=== PATIENT | male | born 1950 | race Caucasian/White ===

== ENCOUNTER 2021-12-16 09:56 | Inpatient (IN) ==
[2021-12-16] MEDS ORDERED: 0.9 % Sodium Chloride 1,000 ML IVC ONE (10:03)
[2021-12-16] MEDS ORDERED: Piperacillin/Tazobactam 3.375 GM in 0.9 % Sodium Chloride Mini Bag 100 ML IVPB ONE (10:04)
[2021-12-16] MEDS ORDERED: Vancomycin 1,250 MG/262.5 ML IV.SOLN IVPB STA (10:09)
[2021-12-16 10:35] LABS: Hematocrit 37.9 % (37.5-50.1); Hemoglobin 12.2 g/dL (12.9-16.9); Mean Corpuscular HGB Conc 32.2 g/dL (31.6-35.5); Mean Corpuscular Hemoglobin 29.9 pg (28.0-33.3); Mean Corpuscular Volume 92.9 fL (83.0-100.0); Mean Platelet Volume 10.8 fL (9.4-12.4); Monocytes # 0.6 K/mcL (0.0-1.3); Platelet Count 178 K/mcL (140-400); Red Blood Count 4.08 M/mcL (4.19-5.50); Red Cell Distribution Width 14.4 % (11.5-14.5); White Blood Count 16.1 K/mcL (4.3-11.1)
[2021-12-16] MEDS ORDERED: 0.9 % Sodium Chloride 500 ML IVC ONE ×2 (10:59→18:09)
[2021-12-16 11:01] LABS: Lymphocytes # 0.6 K/mcL (0.6-4.6); Neutrophils # 14.8 K/mcL (1.6-8.9)
[2021-12-16 11:02] LABS: Toxic Granulation Present (Not Present)
[2021-12-16 11:09] LABS: Albumin 3.5 g/dL (3.5-5.7); Albumin/Globulin Ratio 1.2 (1.1-2.2); Bilirubin,Direct 0.3 mg/dL (0.0-0.2); Bilirubin,Indirect 0.6 mg/dL (0.0-1.0); Bilirubin,Total 0.9 mg/dL (0.3-1.0); Calcium 8.4 mg/dL (8.6-10.3); Potassium 3.1 mEq/L (3.5-5.1); Total Protein 6.5 g/dL (6.4-8.9); Troponin I 0.08 ng/mL (< 0.04)
[2021-12-16 12:06] LABS: Amorphous Sediment,Urine Few per hpf (None-Few); Bilirubin,Urine Negative (Negative); Blood,Urine Moderate (Negative); Clarity,Urine Ex.Turbid (Clear); Color,Urine Yellow (Yellow); Glucose,Urine (UA) Normal (Normal); Hyaline Casts,Urine Few per lpf (None Seen); Ketones,Urine Trace mg/dL (Negative); Leukocyte Esterase,Urine Negative (Negative); Mucus,Urine Few per lpf (None-Few); Nitrite,Urine Negative (Negative); PH,Urine 5.5 pH Units (5.0-8.0); Protein,Urine 200 mg/dL (Neg-Trace); Squamous Epithelial Cell,Urine Few per hpf (None-Few)
[2021-12-16] MEDS ORDERED: Naloxone 0.4 MG/ML INJ IVP PRN (12:32)
[2021-12-16] MEDS ORDERED: Ondansetron 4 MG/2 ML VIAL IVP PRN (12:32)
[2021-12-16] MEDS ORDERED: Acetaminophen 325 MG TABLET PO PRN (12:32)
[2021-12-16 12:42] LABS: INR 1.6; Prothrombin Time 17.9 Seconds (9.4-12.1)
[2021-12-16] MEDS ORDERED: *HR* Propofol 200 MG/20 ML VIAL IVP ONE (14:08)
[2021-12-16] MEDS ORDERED: Lidocaine -MPF 2% 2 ML VIAL ONE (14:09)
[2021-12-16] MEDS ORDERED: *HR* Succinylcholine 200 MG/10 ML VIAL IVP ONE (14:09)
[2021-12-16] MEDS ORDERED: Indomethacin 50 MG SUPP.RECT RC ONE (14:11)
[2021-12-16] MEDS ORDERED: Lidocaine -MPF 4% 5 ML AMPUL ONE (14:12)
[2021-12-16] MEDS ORDERED: *HR* Phenylephrine 10 MG/ML VIAL ONE (14:40)
[2021-12-16] MEDS ORDERED: *HR* HYDROMORPHONE 2 MG/ML VIAL ONE (15:03)
[2021-12-16] MEDS ORDERED: EPHEDrine 50 MG/ML VIAL ONE (15:26)
[2021-12-16] MEDS: 0.9 % Sodium Chloride 1,000 ML IVC SCH (17:46)
[2021-12-16] MEDS ORDERED: Piperacillin/Tazobactam 3.375 GM in 0.9 % Sodium Chloride Mini Bag 100 ML IVPB SCH (18:00)
[2021-12-16 18:25] LABS: Calcium 7.3 mg/dL (8.6-10.3); Potassium 4.3 mEq/L (3.5-5.1)
[2021-12-16] MEDS: Piperacillin/Tazobactam 3.375 GM in 0.9 % Sodium Chloride Mini Bag 100 ML IVPB SCH (22:43)
[2021-12-16 23:47] LABS: A.calcoaceticus-baumannii cplx Not Detected (Not Detect); Bacteroides fragilis by PCR Not Detected (Not Detect); CTX-M ESBL Gene Not Detected (Not Detect); Candida albicans by PCR Not Detected (Not Detect); Candida auris by PCR Not Detected (Not Detect); Candida glabrata by PCR Not Detected (Not Detect); Candida krusei by PCR Not Detected (Not Detect); Candida parapsilosis by PCR Not Detected (Not Detect); Candida tropicalis by PCR Not Detected (Not Detect); Crypto. neoformans/gattii PCR Not Detected (Not Detect); Enterobacter cloacae Cmplx PCR Not Detected (Not Detect); Enterococcus faecalis by PCR Not Detected (Not Detect); Enterococcus faecium by PCR Not Detected (Not Detect); Escherichia coli by PCR DETECTED (Not Detect); IMP Carbapenem-Resist Gene Not Detected (Not Detect); Klebs. pneumoniae group by PCR Not Detected (Not Detect); Klebsiella aerogenes by PCR Not Detected (Not Detect); Klebsiella oxytoca by PCR Not Detected (Not Detect); NDM Carbapenem-Resist Gene Not Detected (Not Detect); OXA-48-like Carbap-Resist Gene Not Detected (Not Detect); Proteus by PCR Not Detected (Not Detect); Pseudomonas aeruginosa by PCR Not Detected (Not Detect); Salmonella species by PCR Not Detected (Not Detect); Serratia marcescens by PCR Not Detected (Not Detect); Staph epidermidis by PCR Not Detected (Not Detect); Staph lugdunensis by PCR Not Detected (Not Detect); Staphylococcus aureus by PCR Not Detected (Not Detect); Staphylococcus by PCR Not Detected (Not Detect); Stenotrophomonas maltophilia Not Detected (Not Detect); Streptococcus agalactiae(B)PCR Not Detected (Not Detect); Streptococcus by PCR Not Detected (Not Detect); Streptococcus pneumoniae PCR Not Detected (Not Detect); Streptococcus pyogenes (A) PCR Not Detected (Not Detect); VIM Carbapenem-Resist Gene Not Detected (Not Detect); blaKPC Carbapenem-Resist Gene Not Detected (Not Detect); mcr-1 Colistin-Resist Gene Not Detected (Not Detect)
[2021-12-17 02:01] LABS: Basophils % 0.2 %; Hematocrit 35.5 % (37.5-50.1); Hemoglobin 11.3 g/dL (12.9-16.9); Immature Granulocytes % 12.4 % (0-4); Lymphocytes # 0.8 K/mcL (0.6-4.6); Lymphocytes % 5.8 %; Mean Corpuscular HGB Conc 31.8 g/dL (31.6-35.5); Mean Corpuscular Hemoglobin 29.9 pg (28.0-33.3); Mean Corpuscular Volume 93.9 fL (83.0-100.0); Mean Platelet Volume 11.6 fL (9.4-12.4); Monocytes # 0.4 K/mcL (0.0-1.3); Monocytes % 2.9 %; Neutrophils # 11.1 K/mcL (1.6-8.9); Platelet Count 145 K/mcL (140-400); Red Blood Count 3.78 M/mcL (4.19-5.50); Red Cell Distribution Width 14.9 % (11.5-14.5); Segmented Neutrophils % 78.7 %; White Blood Count 14.1 K/mcL (4.3-11.1)
[2021-12-17 02:12] LABS: Albumin/Globulin Ratio 1.2 (1.1-2.2); Bilirubin,Total 0.5 mg/dL (0.3-1.0); Calcium 7.2 mg/dL (8.6-10.3); Globulin 2.6 g/dL (2.4-3.5); Magnesium 1.7 mg/dL (1.6-2.6); Total Protein 5.6 g/dL (6.4-8.9)
[2021-12-17] MEDS: 0.9 % Sodium Chloride 1,000 ML IVC SCH (02:12)
[2021-12-17 02:38] LABS: Platelet Estimate Normal (Normal)
[2021-12-17] MEDS ORDERED: *HR* Enoxaparin 40 MG/0.4 ML SYRINGE SQ SCH (07:00)
[2021-12-17] MEDS ORDERED: 0.9 % Sodium Chloride 1,000 ML IVC SCH ×2 (07:45→14:00)
[2021-12-17] MEDS: Piperacillin/Tazobactam 3.375 GM in 0.9 % Sodium Chloride Mini Bag 100 ML IVPB SCH ×2 (08:03→19:57)
[2021-12-17 10:08] LABS: Troponin I 0.06 ng/mL (< 0.04)
[2021-12-18 02:41] LABS: Basophils % 0.2 %; Hematocrit 34.8 % (37.5-50.1); Hemoglobin 11.5 g/dL (12.9-16.9); Immature Granulocytes % 1.8 % (0-4); Lymphocytes # 0.8 K/mcL (0.6-4.6); Lymphocytes % 6.5 %; Mean Corpuscular Hemoglobin 30.6 pg (28.0-33.3); Mean Corpuscular Volume 92.6 fL (83.0-100.0); Mean Platelet Volume 11.8 fL (9.4-12.4); Monocytes # 0.7 K/mcL (0.0-1.3); Monocytes % 5.4 %; Nucleated Red Blood Cells 0.2 /100 WBC (0); Platelet Count 172 K/mcL (140-400); Red Blood Count 3.76 M/mcL (4.19-5.50); Red Cell Distribution Width 14.9 % (11.5-14.5); Segmented Neutrophils % 86.1 %; White Blood Count 12.8 K/mcL (4.3-11.1)
[2021-12-18 02:44] LABS: INR 1.3; Prothrombin Time 14.1 Seconds (9.4-12.1)
[2021-12-18 02:58] LABS: Albumin 2.9 g/dL (3.5-5.7); Albumin/Globulin Ratio 1.1 (1.1-2.2); Bilirubin,Direct 0.1 mg/dL (0.0-0.2); Bilirubin,Indirect 0.4 mg/dL (0.0-1.0); Bilirubin,Total 0.5 mg/dL (0.3-1.0); Calcium 7.5 mg/dL (8.6-10.3); Globulin 2.6 g/dL (2.4-3.5); Potassium 4.4 mEq/L (3.5-5.1); Total Protein 5.5 g/dL (6.4-8.9)
[2021-12-18] MEDS ORDERED: Isovue-370 500 ML BOTTLE IVP ONE (07:32)
[2021-12-18] MEDS ORDERED: 0.9 % Sodium Chloride 1,000 ML IVC SCH (07:45)
[2021-12-18] MEDS: Piperacillin/Tazobactam 3.375 GM in 0.9 % Sodium Chloride Mini Bag 100 ML IVPB SCH ×2 (09:49→21:09)
[2021-12-18] MEDS ORDERED: Gadolinium Contrast Agent (WT Based) IV PRN (10:43)
[2021-12-19 05:22] LABS: Hematocrit 37.6 % (37.5-50.1); Hemoglobin 12.3 g/dL (12.9-16.9); Mean Corpuscular HGB Conc 32.7 g/dL (31.6-35.5); Mean Corpuscular Hemoglobin 29.7 pg (28.0-33.3); Mean Corpuscular Volume 90.8 fL (83.0-100.0); Mean Platelet Volume 11.5 fL (9.4-12.4); Platelet Count 219 K/mcL (140-400); Red Blood Count 4.14 M/mcL (4.19-5.50); Red Cell Distribution Width 14.8 % (11.5-14.5)
[2021-12-19 05:42] LABS: Monocytes # 0.6 K/mcL (0.0-1.3); Neutrophils # 11.5 K/mcL (1.6-8.9)
[2021-12-19 05:43] LABS: Platelet Estimate Normal (Normal)
[2021-12-19 05:47] LABS: Albumin 2.9 g/dL (3.5-5.7); Bilirubin,Total 0.6 mg/dL (0.3-1.0); Calcium 7.9 mg/dL (8.6-10.3); Potassium 3.8 mEq/L (3.5-5.1); Total Protein 5.9 g/dL (6.4-8.9)
[2021-12-19 05:52] LABS: Carcinoembryonic Antigen 1.3 ng/mL (Less than 5.0)
[2021-12-19] MEDS ORDERED: Lidocaine -MPF 2% 2 ML VIAL ONE (07:27)
[2021-12-19] MEDS ORDERED: *HR* Succinylcholine 200 MG/10 ML VIAL IVP ONE (07:27)
[2021-12-19] MEDS ORDERED: Ondansetron 4 MG/2 ML VIAL ONE (07:27)
[2021-12-19] MEDS ORDERED: *HR* Propofol 200 MG/20 ML VIAL IVP ONE ×2 (07:27→08:35)
[2021-12-19] MEDS ORDERED: Lidocaine -MPF 4% 5 ML AMPUL ONE (07:27)
[2021-12-19] MEDS ORDERED: Lacri-Lube 3.5 GM TUBE ONE (08:18)
[2021-12-19] MEDS ORDERED: *HR* Rocuronium Bromide 50 MG/5 ML VIAL ONE (08:24)
[2021-12-19] MEDS: Piperacillin/Tazobactam 3.375 GM in 0.9 % Sodium Chloride Mini Bag 100 ML IVPB SCH ×2 (10:23→21:20)
[2021-12-19 11:04] LABS: Adenovirus Not Detected (Not Detect); Bordetella Pertussis Not Detected (Not Detect); Chlamydophila pneumoniae Not Detected (Not Detect); Coronavirus 229E Not Detected (Not Detect); Coronavirus HKU1 Not Detected (Not Detect); Coronavirus NL63 Not Detected (Not Detect); Coronavirus OC43 Not Detected (Not Detect); Human Metapneumovirus Not Detected (Not Detect); Human Rhinovirus/Enterovirus Not Detected (Not Detect); Influenza A Subtype 2009 H1 Not Detected (Not Detect); Influenza B Not Detected (Not Detect); Mycoplasma pneumoniae Not Detected (Not Detect); Parainfluenza Virus 1 Not Detected (Not Detect); Parainfluenza Virus 2 Not Detected (Not Detect); Parainfluenza Virus 3 Not Detected (Not Detect); Parainfluenza Virus 4 Not Detected (Not Detect); Respiratory Syncytial Virus Not Detected (Not Detect); SARS-CoV-2 Not Detected (Not Detect)
[2021-12-19] MEDS ORDERED: GADOBUTROL 30 MMOL/30 ML VIAL IVP ONE (11:19)
[2021-12-19 14:52] LABS: Appearance of Body Fluid Clear (Clear); Volume of Body Fluid 21 mL
[2021-12-19] MEDS ORDERED: *HR* Heparin 5,000 UNIT/ML VIAL IVP PRN (21:30)
[2021-12-19] MEDS ORDERED: *HR* Heparin 5,000 UNIT/ML VIAL IVP ONE (21:30)
[2021-12-19 23:29] LABS: Hematocrit 38.1 % (37.5-50.1); Hemoglobin 12.5 g/dL (12.9-16.9); Mean Corpuscular HGB Conc 32.8 g/dL (31.6-35.5); Mean Corpuscular Hemoglobin 30.4 pg (28.0-33.3); Mean Corpuscular Volume 92.7 fL (83.0-100.0); Mean Platelet Volume 11.5 fL (9.4-12.4); Platelet Count 222 K/mcL (140-400); Red Blood Count 4.11 M/mcL (4.19-5.50); Red Cell Distribution Width 14.8 % (11.5-14.5); White Blood Count 12.4 K/mcL (4.3-11.1)
[2021-12-19 23:39] LABS: INR 1.2
[2021-12-19 23:42] LABS: Heparin anti-factor XA UFH < 0.04 IU/mL (0.30-0.70)
[2021-12-19] MEDS: Heparin 25,000UNIT/250ML 1/2NS 25,000 UNIT/250 ML IV.SOLN IVC SCH (23:50)
[2021-12-20 05:51] LABS: Basophils % 0.3 %; Eosinophils % 0.1 %; Hematocrit 37.2 % (37.5-50.1); Immature Granulocytes % 14.6 % (0-4); Lymphocytes # 1.5 K/mcL (0.6-4.6); Lymphocytes % 9.9 %; Mean Corpuscular HGB Conc 32.3 g/dL (31.6-35.5); Mean Corpuscular Hemoglobin 30.5 pg (28.0-33.3); Mean Corpuscular Volume 94.7 fL (83.0-100.0); Mean Platelet Volume 11.8 fL (9.4-12.4); Monocytes % 6.9 %; Nucleated Red Blood Cells 0.1 /100 WBC (0); Platelet Count 216 K/mcL (140-400); Red Blood Count 3.93 M/mcL (4.19-5.50); Segmented Neutrophils % 68.2 %; White Blood Count 14.6 K/mcL (4.3-11.1)
[2021-12-20 06:16] LABS: Albumin 2.9 g/dL (3.5-5.7); Bilirubin,Total 0.5 mg/dL (0.3-1.0); Calcium 7.7 mg/dL (8.6-10.3); Globulin 2.9 g/dL (2.4-3.5); Potassium 4.3 mEq/L (3.5-5.1); Total Protein 5.8 g/dL (6.4-8.9)
[2021-12-20 06:26] LABS: Platelet Estimate Normal (Normal)
[2021-12-20] MEDS: *HR* Heparin 5,000 UNIT/ML VIAL IVP PRN ×2 (07:58→15:29)
[2021-12-20 09:27] LABS: Adenovirus F 40/41 PCR Not detected (Not detect); Astrovirus PCR Not detected (Not detect); C.difficile Toxin A/B Gene PCR Not detected (Not detect); Campylobacter by PCR Not detected (Not detect); Cryptosporidium by PCR Not detected (Not detect); Cyclospora cayetanensis PCR Not detected (Not detect); E. coli O157 by PCR Not detected (Not detect); Entamoeba histolytica PCR Not detected (Not detect); Enteroaggregative E.coli(EAEC) Not detected (Not detect); Enteropathogenic E.coli(EPEC) Not detected (Not detect); Enterotoxigenic E.coli (ETEC) Not detected (Not detect); Giardia lamblia PCR Not detected (Not detect); Norovirus GI/GII PCR Not detected (Not detect); Plesiomonas shigelloides PCR Not detected (Not detect); Rotavirus A PCR Not detected (Not detect); Salmonella PCR Not detected (Not detect); Sapovirus PCR Not detected (Not detect); Shig/EnteroinvasiveE coli EIEC Not detected (Not detect); Shigalike tox-prod E coli STEC Not detected (Not detect); Vibrio PCR Not detected (Not detect); Vibrio cholerae PCR Not detected (Not detect); Yersinia enterocolitica PCR Not detected (Not detect)
[2021-12-20] MEDS: Piperacillin/Tazobactam 3.375 GM in 0.9 % Sodium Chloride Mini Bag 100 ML IVPB SCH (10:10)
[2021-12-20] MEDS ORDERED: levoFLOXacin 750 MG/150 ML 750 MG/150 ML BAG IVPB SCH (16:00)
[2021-12-20] MEDS: metroNIDAZOLE 500 MG TABLET PO SCH ×2 (17:12→21:55)
[2021-12-20] MEDS: Heparin 25,000UNIT/250ML 1/2NS 25,000 UNIT/250 ML IV.SOLN IVC SCH (17:13)
[2021-12-21 07:31] LABS: Hematocrit 38.3 % (37.5-50.1); Hemoglobin 12.6 g/dL (12.9-16.9); Mean Corpuscular HGB Conc 32.9 g/dL (31.6-35.5); Mean Corpuscular Hemoglobin 30.4 pg (28.0-33.3); Mean Corpuscular Volume 92.5 fL (83.0-100.0); Mean Platelet Volume 11.8 fL (9.4-12.4); Platelet Count 259 K/mcL (140-400); Red Blood Count 4.14 M/mcL (4.19-5.50); Red Cell Distribution Width 14.7 % (11.5-14.5); White Blood Count 18.6 K/mcL (4.3-11.1)
[2021-12-21 07:50] LABS: Albumin/Globulin Ratio 0.9 (1.1-2.2); Bilirubin,Total 0.7 mg/dL (0.3-1.0); Calcium 7.9 mg/dL (8.6-10.3); Globulin 3.3 g/dL (2.4-3.5); Potassium 3.6 mEq/L (3.5-5.1); Total Protein 6.3 g/dL (6.4-8.9)
[2021-12-21 08:07] LABS: Monocytes # 1.5 K/mcL (0.0-1.3); Platelet Estimate Normal (Normal)
[2021-12-21] MEDS: metroNIDAZOLE 500 MG TABLET PO SCH ×3 (08:48→19:43)
[2021-12-21] MEDS: Heparin 25,000UNIT/250ML 1/2NS 25,000 UNIT/250 ML IV.SOLN IVC SCH (09:56)
[2021-12-21] MEDS ORDERED: Mag Hydrox/Al Hydrox/Simeth 30 ML UDC PO PRN (11:53)
[2021-12-21] MEDS: levoFLOXacin 750 MG/150 ML 750 MG/150 ML BAG IVPB SCH (17:52)
[2021-12-22] MEDS: Heparin 25,000UNIT/250ML 1/2NS 25,000 UNIT/250 ML IV.SOLN IVC SCH (01:25)
[2021-12-22 02:55] LABS: Basophils % 0.1 %; Eosinophils # 0.3 K/mcL (0.0-0.6); Eosinophils % 1.8 %; Hematocrit 37.3 % (37.5-50.1); Hemoglobin 12.3 g/dL (12.9-16.9); Immature Granulocytes % 15.5 % (0-4); Lymphocytes # 1.7 K/mcL (0.6-4.6); Lymphocytes % 9.3 %; Mean Corpuscular Hemoglobin 30.1 pg (28.0-33.3); Mean Corpuscular Volume 91.4 fL (83.0-100.0); Mean Platelet Volume 11.4 fL (9.4-12.4); Monocytes # 1.1 K/mcL (0.0-1.3); Monocytes % 6.1 %; Neutrophils # 11.9 K/mcL (1.6-8.9); Platelet Count 289 K/mcL (140-400); Red Blood Count 4.08 M/mcL (4.19-5.50); Red Cell Distribution Width 14.7 % (11.5-14.5); Segmented Neutrophils % 67.2 %; White Blood Count 17.7 K/mcL (4.3-11.1)
[2021-12-22 03:14] LABS: BUN/Creatinine Ratio 21 (6-26); Blood Urea Nitrogen 27 mg/dL (8-23); Calcium 8.2 mg/dL (8.6-10.3); Carbon Dioxide 20 mEq/L (23-29); Chloride 109 mEq/L (98-107); Glucose 113 mg/dL (70-105); Magnesium 1.7 mg/dL (1.6-2.6); Osmolality,Calculated 292 (280-300); Sodium 138 mEq/L (136-145); eGFR For African Americans > 60 (> 60); eGFR For Non-African Americans 55 (> 60)
[2021-12-22 03:27] LABS: Albumin/Globulin Ratio 1.2 (1.1-2.2); Bilirubin,Direct 0.1 mg/dL (0.0-0.2); Bilirubin,Indirect 0.6 mg/dL (0.0-1.0); Bilirubin,Total 0.7 mg/dL (0.3-1.0); Globulin 2.5 g/dL (2.4-3.5); Total Protein 5.5 g/dL (6.4-8.9)
[2021-12-22 04:08] LABS: Anisocytosis 1+ (Not Present); Hypochromasia Present (Not Present)
[2021-12-22 04:09] LABS: Platelet Estimate Normal (Normal); Tear Drop Cells 2+ (Not Present)
[2021-12-22] MEDS: metroNIDAZOLE 500 MG TABLET PO SCH ×3 (07:09→20:05)
[2021-12-22] MEDS: levoFLOXacin 750 MG/150 ML 750 MG/150 ML BAG IVPB SCH (16:17)
[2021-12-23 05:33] LABS: Hematocrit 36.8 % (37.5-50.1); Mean Corpuscular HGB Conc 32.6 g/dL (31.6-35.5); Mean Corpuscular Hemoglobin 30.8 pg (28.0-33.3); Mean Corpuscular Volume 94.4 fL (83.0-100.0); Mean Platelet Volume 11.2 fL (9.4-12.4); Nucleated Red Blood Cells 0.1 /100 WBC (0); Platelet Count 307 K/mcL (140-400); Red Cell Distribution Width 15.2 % (11.5-14.5); White Blood Count 18.4 K/mcL (4.3-11.1)
[2021-12-23 05:43] LABS: Albumin 3.1 g/dL (3.5-5.7); Albumin/Globulin Ratio 1.1 (1.1-2.2); Bilirubin,Direct 0.2 mg/dL (0.0-0.2); Bilirubin,Indirect 0.4 mg/dL (0.0-1.0); Bilirubin,Total 0.6 mg/dL (0.3-1.0); Globulin 2.8 g/dL (2.4-3.5); Total Protein 5.9 g/dL (6.4-8.9)
[2021-12-23 05:45] LABS: BUN/Creatinine Ratio 18 (6-26); Blood Urea Nitrogen 24 mg/dL (8-23); Calcium 8.3 mg/dL (8.6-10.3); Carbon Dioxide 21 mEq/L (23-29); Chloride 108 mEq/L (98-107); Glucose 115 mg/dL (70-105); Magnesium 1.6 mg/dL (1.6-2.6); Osmolality,Calculated 289 (280-300); Potassium 4.1 mEq/L (3.5-5.1); Sodium 137 mEq/L (136-145); eGFR For African Americans > 60 (> 60); eGFR For Non-African Americans 53 (> 60)
[2021-12-23 06:44] LABS: Large Platelets Present (Not Present); Lymphocytes # 1.1 K/mcL (0.6-4.6); Monocytes # 1.5 K/mcL (0.0-1.3); Neutrophils # 14.7 K/mcL (1.6-8.9); Platelet Estimate Normal (Normal)
[2021-12-23] MEDS: Heparin 25,000UNIT/250ML 1/2NS 25,000 UNIT/250 ML IV.SOLN IVC SCH ×2 (07:30→10:50)
[2021-12-23] MEDS: metroNIDAZOLE 500 MG TABLET PO SCH ×3 (07:37→21:08)
[2021-12-23] MEDS ORDERED: Isovue-370 500 ML BOTTLE IVP ONE (10:02)
[2021-12-23] MEDS: levoFLOXacin 750 MG/150 ML 750 MG/150 ML BAG IVPB SCH (16:51)
[2021-12-24 01:47] LABS: Hematocrit 35.7 % (37.5-50.1); Hemoglobin 11.5 g/dL (12.9-16.9); Mean Corpuscular HGB Conc 32.2 g/dL (31.6-35.5); Mean Corpuscular Hemoglobin 29.9 pg (28.0-33.3); Mean Platelet Volume 10.8 fL (9.4-12.4); Platelet Count 300 K/mcL (140-400); Red Blood Count 3.84 M/mcL (4.19-5.50); Red Cell Distribution Width 15.4 % (11.5-14.5); White Blood Count 16.3 K/mcL (4.3-11.1)
[2021-12-24 01:54] LABS: Albumin/Globulin Ratio 1.1 (1.1-2.2); BUN/Creatinine Ratio 20 (6-26); Bilirubin,Direct 0.1 mg/dL (0.0-0.2); Bilirubin,Indirect 0.4 mg/dL (0.0-1.0); Bilirubin,Total 0.5 mg/dL (0.3-1.0); Blood Urea Nitrogen 26 mg/dL (8-23); Carbon Dioxide 22 mEq/L (23-29); Chloride 108 mEq/L (98-107); Globulin 2.8 g/dL (2.4-3.5); Glucose 112 mg/dL (70-105); Osmolality,Calculated 290 (280-300); Sodium 137 mEq/L (136-145); Total Protein 5.8 g/dL (6.4-8.9); eGFR For African Americans > 60 (> 60); eGFR For Non-African Americans 54 (> 60)
[2021-12-24 02:36] LABS: Lymphocytes # 2.3 K/mcL (0.6-4.6); Monocytes # 0.7 K/mcL (0.0-1.3); Platelet Estimate Normal (Normal)
[2021-12-24] MEDS: metroNIDAZOLE 500 MG TABLET PO SCH ×3 (08:27→20:46)
[2021-12-24] MEDS: Heparin 25,000UNIT/250ML 1/2NS 25,000 UNIT/250 ML IV.SOLN IVC SCH ×2 (16:13→21:44)
[2021-12-24] MEDS: levoFLOXacin 750 MG/150 ML 750 MG/150 ML BAG IVPB SCH (17:31)
[2021-12-25 03:15] LABS: Hematocrit 36.9 % (37.5-50.1); Hemoglobin 11.9 g/dL (12.9-16.9); Mean Corpuscular HGB Conc 32.2 g/dL (31.6-35.5); Mean Corpuscular Hemoglobin 30.1 pg (28.0-33.3); Mean Corpuscular Volume 93.4 fL (83.0-100.0); Mean Platelet Volume 10.4 fL (9.4-12.4); Platelet Count 338 K/mcL (140-400); Red Blood Count 3.95 M/mcL (4.19-5.50); Red Cell Distribution Width 15.4 % (11.5-14.5); White Blood Count 13.1 K/mcL (4.3-11.1)
[2021-12-25 03:32] LABS: BUN/Creatinine Ratio 16 (6-26); Blood Urea Nitrogen 22 mg/dL (8-23); Calcium 8.1 mg/dL (8.6-10.3); Carbon Dioxide 20 mEq/L (23-29); Chloride 109 mEq/L (98-107); Glucose 117 mg/dL (70-105); Osmolality,Calculated 288 (280-300); Sodium 137 mEq/L (136-145); eGFR For African Americans > 60 (> 60); eGFR For Non-African Americans 53 (> 60)
[2021-12-25 03:33] LABS: Albumin 3.1 g/dL (3.5-5.7); Albumin/Globulin Ratio 1.1 (1.1-2.2); Bilirubin,Direct 0.1 mg/dL (0.0-0.2); Bilirubin,Indirect 0.4 mg/dL (0.0-1.0); Bilirubin,Total 0.5 mg/dL (0.3-1.0); Globulin 2.9 g/dL (2.4-3.5)
[2021-12-25 04:25] LABS: Large Platelets Present (Not Present); Lymphocytes # 2.4 K/mcL (0.6-4.6); Monocytes # 0.3 K/mcL (0.0-1.3); Neutrophils # 10.5 K/mcL (1.6-8.9); Platelet Estimate Normal (Normal)
[2021-12-25] MEDS: Heparin 25,000UNIT/250ML 1/2NS 25,000 UNIT/250 ML IV.SOLN IVC SCH ×2 (06:54→20:02)
[2021-12-25] MEDS: metroNIDAZOLE 500 MG TABLET PO SCH ×3 (08:51→20:02)
[2021-12-25] MEDS: levoFLOXacin 750 MG/150 ML 750 MG/150 ML BAG IVPB SCH (16:31)
[2021-12-26 04:11] LABS: Basophils # 0.2 K/mcL (0.0-0.2); Basophils % 1.5 %; Eosinophils # 0.2 K/mcL (0.0-0.6); Eosinophils % 1.3 %; Hematocrit 36.7 % (37.5-50.1); Hemoglobin 11.7 g/dL (12.9-16.9); Immature Granulocytes % 7.1 % (0-4); Lymphocytes # 1.9 K/mcL (0.6-4.6); Lymphocytes % 17.1 %; Mean Corpuscular HGB Conc 31.9 g/dL (31.6-35.5); Mean Corpuscular Hemoglobin 29.8 pg (28.0-33.3); Mean Corpuscular Volume 93.6 fL (83.0-100.0); Mean Platelet Volume 10.6 fL (9.4-12.4); Monocytes # 0.8 K/mcL (0.0-1.3); Monocytes % 7.5 %; Neutrophils # 7.3 K/mcL (1.6-8.9); Platelet Count 314 K/mcL (140-400); Red Blood Count 3.92 M/mcL (4.19-5.50); Red Cell Distribution Width 15.4 % (11.5-14.5); Segmented Neutrophils % 65.5 %; White Blood Count 11.2 K/mcL (4.3-11.1)
[2021-12-26 04:31] LABS: Alanine Aminotransferase 52 Units/L (7-52); Albumin/Globulin Ratio 1.1 (1.1-2.2); Alkaline Phosphatase 70 Units/L (34-104); Aspartate Amino Transferase 22 Units/L (13-39); BUN/Creatinine Ratio 16 (6-26); Bilirubin,Indirect 0.5 mg/dL (0.0-1.0); Bilirubin,Total 0.5 mg/dL (0.3-1.0); Blood Urea Nitrogen 22 mg/dL (8-23); Calcium 7.9 mg/dL (8.6-10.3); Carbon Dioxide 20 mEq/L (23-29); Chloride 109 mEq/L (98-107); Globulin 2.8 g/dL (2.4-3.5); Glucose 106 mg/dL (70-105); Osmolality,Calculated 286 (280-300); Potassium 3.8 mEq/L (3.5-5.1); Sodium 136 mEq/L (136-145); Total Protein 5.8 g/dL (6.4-8.9); eGFR For African Americans > 60 (> 60); eGFR For Non-African Americans 52 (> 60)
[2021-12-26 04:44] LABS: Hypochromasia Present (Not Present)
[2021-12-26 04:45] LABS: Platelet Estimate Normal (Normal)
[2021-12-26] MEDS: metroNIDAZOLE 500 MG TABLET PO SCH ×2 (08:13→14:58)
[2021-12-26] MEDS ORDERED: polyethylene glycoL 3350 17 GM POWD.PACK PO ONE (09:31)
[2021-12-26] MEDS: Heparin 25,000UNIT/250ML 1/2NS 25,000 UNIT/250 ML IV.SOLN IVC SCH (11:59)
[2021-12-26 16:32] VITALS: BP 119/74; PULSE 67; TEMP 98.5; O2SAT 95
[2021-12-26] MEDS ORDERED: levoFLOXacin 750 MG TABLET PO ONE (16:57)
[2021-12-26] MEDS ORDERED: Apixaban 5 MG TABLET PO SCH (18:00)
== END 2021-12-26 18:37 | disposition home health service (06) | DRG 871 ==
LOC: 2NNU 09:56 → EMEROOARM 09:56 → SUATTDRO 12:47 → 2NNU 13:37 → 2NENU 12-20 21:37
PROVIDERS: ADMIT Internal Medicine; ATTEND Internal Medicine
PROC: IRLIVER (2021-12-19 12:00)

== ENCOUNTER 2022-02-20 15:00 | Inpatient (IN) ==
[2022-02-20] MEDS ORDERED: Morphine Sulfate 2 MG/ML SYRINGE IVP ONE (15:23)
[2022-02-20] MEDS ORDERED: 0.9 % Sodium Chloride 1,000 ML IVC ONE (15:23)
[2022-02-20] MEDS ORDERED: Iopamidol - 370 500 ML MLS IVP ONE (15:24)
[2022-02-20 16:08] LABS: Basophils # 0.1 K/mcL (0.0-0.2); Basophils % 0.7 %; Eosinophils # 0.1 K/mcL (0.0-0.6); Eosinophils % 0.7 %; Hematocrit 44.7 % (37.5-50.1); Immature Granulocytes % 1.6 % (0-4); Lymphocytes # 1.8 K/mcL (0.6-4.6); Lymphocytes % 11.5 %; Mean Corpuscular HGB Conc 32.2 g/dL (31.6-35.5); Mean Corpuscular Hemoglobin 29.8 pg (28.0-33.3); Mean Corpuscular Volume 92.4 fL (83.0-100.0); Mean Platelet Volume 10.9 fL (9.4-12.4); Monocytes # 1.1 K/mcL (0.0-1.3); Monocytes % 7.4 %; Platelet Count 317 K/mcL (140-400); Red Blood Count 4.84 M/mcL (4.19-5.50); Segmented Neutrophils % 78.1 %; White Blood Count 15.4 K/mcL (4.3-11.1)
[2022-02-20 16:11] LABS: Hemoglobin 14.4 g/dL (12.9-16.9)
[2022-02-20 16:27] LABS: Albumin 3.8 g/dL (3.5-5.7); Albumin/Globulin Ratio 1.1 (1.1-2.2); Bilirubin,Direct 0.1 mg/dL (0.0-0.2); Bilirubin,Indirect 0.4 mg/dL (0.0-1.0); Bilirubin,Total 0.5 mg/dL (0.3-1.0); Calcium 8.3 mg/dL (8.6-10.3); Globulin 3.4 g/dL (2.4-3.5); Potassium 3.7 mEq/L (3.5-5.1); Total Protein 7.2 g/dL (6.4-8.9)
[2022-02-20 16:56] LABS: Bilirubin,Urine Negative (Negative); Blood,Urine Trace (Negative); Clarity,Urine Clear (Clear); Color,Urine Light-Yellow (Yellow); Glucose,Urine (UA) Normal (Normal); Hyaline Casts,Urine Few per lpf (None Seen); Ketones,Urine Negative (Negative); Leukocyte Esterase,Urine Negative (Negative); Mucus,Urine Few per lpf (None-Few); Nitrite,Urine Negative (Negative); PH,Urine 5.5 pH Units (5.0-8.0); Protein,Urine 30 mg/dL (Neg-Trace); Specific Gravity,Urine 1.019 (1.010-1.025); Squamous Epithelial Cell,Urine Few per hpf (None-Few); Urobilinogen,Urine Normal (Normal)
[2022-02-20] MEDS ORDERED: 0.9 % Sodium Chloride 1,000 ML IV ONE (17:03)
[2022-02-20] MEDS ORDERED: Piperacillin/Tazobactam 3.375 GM in 0.9 % Sodium Chloride Mini Bag 100 ML IVPB ONE (20:34)
[2022-02-20] MEDS ORDERED: Acetaminophen 325 MG TABLET PO PRN (21:35)
[2022-02-20] MEDS ORDERED: Ondansetron 4 MG/2 ML VIAL IVP PRN (21:35)
[2022-02-20] MEDS ORDERED: Naloxone 0.4 MG/ML INJ IVP PRN (21:35)
[2022-02-20] MEDS ORDERED: Melatonin 3 MG TABLET PO PRN (21:35)
[2022-02-20] MEDS: 0.9 % Sodium Chloride 1,000 ML IVC SCH (22:46)
[2022-02-21] MEDS: *HR* HYDROcodone/Acet 5/325 mg TABLET PO PRN ×2 (03:26→09:54)
[2022-02-21] MEDS: Piperacillin/Tazobactam 3.375 GM in 0.9 % Sodium Chloride Mini Bag 100 ML IVPB SCH ×3 (06:11→22:12)
[2022-02-21] MEDS: 0.9 % Sodium Chloride 1,000 ML IVC SCH ×2 (06:11→14:37)
[2022-02-21 06:23] LABS: Basophils # 0.1 K/mcL (0.0-0.2); Basophils % 0.7 %; Eosinophils # 0.1 K/mcL (0.0-0.6); Eosinophils % 1.3 %; Hematocrit 39.8 % (37.5-50.1); Immature Granulocytes % 1.1 % (0-4); Lymphocytes # 1.4 K/mcL (0.6-4.6); Lymphocytes % 13.6 %; Mean Corpuscular HGB Conc 31.7 g/dL (31.6-35.5); Mean Corpuscular Hemoglobin 29.6 pg (28.0-33.3); Mean Corpuscular Volume 93.4 fL (83.0-100.0); Mean Platelet Volume 10.2 fL (9.4-12.4); Monocytes # 0.8 K/mcL (0.0-1.3); Monocytes % 7.3 %; Platelet Count 254 K/mcL (140-400); Red Blood Count 4.26 M/mcL (4.19-5.50); White Blood Count 10.5 K/mcL (4.3-11.1)
[2022-02-21] MEDS: *HR* OxyCODONE Immed Rel 5 MG TABLET PO PRN ×2 (06:24→12:24)
[2022-02-21 06:35] LABS: Hemoglobin 12.6 g/dL (12.9-16.9)
[2022-02-21 06:36] LABS: INR 1.4; Prothrombin Time 15.6 Seconds (9.4-12.1)
[2022-02-21 06:41] LABS: Calcium 7.5 mg/dL (8.6-10.3); Magnesium 1.9 mg/dL (1.6-2.6); Potassium 3.9 mEq/L (3.5-5.1)
[2022-02-22] MEDS: 0.9 % Sodium Chloride 1,000 ML IVC SCH (00:08)
[2022-02-22] MEDS: *HR* OxyCODONE Immed Rel 5 MG TABLET PO PRN (00:49)
[2022-02-22 03:14] LABS: Basophils % 0.5 %; Eosinophils # 0.1 K/mcL (0.0-0.6); Eosinophils % 1.2 %; Hematocrit 38.1 % (37.5-50.1); Hemoglobin 12.3 g/dL (12.9-16.9); Immature Granulocytes % 0.8 % (0-4); Lymphocytes % 13.3 %; Mean Corpuscular HGB Conc 32.3 g/dL (31.6-35.5); Mean Corpuscular Hemoglobin 29.5 pg (28.0-33.3); Mean Corpuscular Volume 91.4 fL (83.0-100.0); Mean Platelet Volume 10.8 fL (9.4-12.4); Monocytes # 0.6 K/mcL (0.0-1.3); Monocytes % 8.6 %; Neutrophils # 5.5 K/mcL (1.6-8.9); Platelet Count 231 K/mcL (140-400); Red Blood Count 4.17 M/mcL (4.19-5.50); Red Cell Distribution Width 13.4 % (11.5-14.5); Segmented Neutrophils % 75.6 %; White Blood Count 7.3 K/mcL (4.3-11.1)
[2022-02-22 03:21] LABS: INR 1.3; Prothrombin Time 14.4 Seconds (9.4-12.1)
[2022-02-22 03:33] LABS: Albumin 2.9 g/dL (3.5-5.7); Calcium 8.1 mg/dL (8.6-10.3); Potassium 3.9 mEq/L (3.5-5.1); Total Protein 5.9 g/dL (6.4-8.9)
[2022-02-22] MEDS: Piperacillin/Tazobactam 3.375 GM in 0.9 % Sodium Chloride Mini Bag 100 ML IVPB SCH ×3 (06:40→23:34)
[2022-02-22] MEDS ORDERED: Ondansetron 4 MG/2 ML VIAL IVP PRN (10:06)
[2022-02-22] MEDS ORDERED: *HR* HYDROmorphone PF 0.5 MG/0.5 ML SYRINGE IVP PRN (10:06)
[2022-02-22] MEDS ORDERED: Promethazine 6.25 MG in Water for inj. (sterile) 20 ML IVPB PRN (10:06)
[2022-02-22] MEDS ORDERED: Lidocaine HCL 4 ML Topical Solution (Laryng-O-Jet Kit Sterile Pak) TP ONE (10:32)
[2022-02-22] MEDS ORDERED: *HR* Rocuronium Bromide 50 MG/5 ML VIAL ONE (10:33)
[2022-02-22] MEDS ORDERED: *HR* FentaNYL (PF) 100 MCG/2 ML VIAL ONE (10:40)
[2022-02-22] MEDS ORDERED: CefOXitin 2,000 MG VIAL ONE (12:39)
[2022-02-23] MEDS: *HR* OxyCODONE Immed Rel 5 MG TABLET PO PRN ×3 (01:24→23:15)
[2022-02-23 02:43] LABS: Basophils % 0.2 %; Hematocrit 38.3 % (37.5-50.1); Hemoglobin 12.2 g/dL (12.9-16.9); Immature Granulocytes % 0.7 % (0-4); Lymphocytes # 0.7 K/mcL (0.6-4.6); Mean Corpuscular HGB Conc 31.9 g/dL (31.6-35.5); Mean Corpuscular Hemoglobin 29.1 pg (28.0-33.3); Mean Corpuscular Volume 91.4 fL (83.0-100.0); Mean Platelet Volume 10.6 fL (9.4-12.4); Monocytes # 0.5 K/mcL (0.0-1.3); Monocytes % 5.8 %; Platelet Count 300 K/mcL (140-400); Red Blood Count 4.19 M/mcL (4.19-5.50); Red Cell Distribution Width 13.2 % (11.5-14.5); Segmented Neutrophils % 85.3 %; White Blood Count 8.2 K/mcL (4.3-11.1)
[2022-02-23 03:04] LABS: Alanine Aminotransferase 109 Units/L (7-52); Albumin 3.1 g/dL (3.5-5.7); Alkaline Phosphatase 308 Units/L (34-104); Aspartate Amino Transferase 105 Units/L (13-39); BUN/Creatinine Ratio 15 (6-26); Blood Urea Nitrogen 19 mg/dL (8-23); Calcium 8.1 mg/dL (8.6-10.3); Carbon Dioxide 20 mEq/L (23-29); Chloride 106 mEq/L (98-107); Globulin 3.1 g/dL (2.4-3.5); Glucose 130 mg/dL (70-105); Osmolality,Calculated 286 (280-300); Potassium 3.8 mEq/L (3.5-5.1); Sodium 136 mEq/L (136-145); Total Protein 6.2 g/dL (6.4-8.9); eGFR For African Americans > 60 (> 60); eGFR For Non-African Americans 55 (> 60)
[2022-02-23] MEDS: *HR* HYDROcodone/Acet 5/325 mg TABLET PO PRN ×2 (03:48→19:50)
[2022-02-23] MEDS: Piperacillin/Tazobactam 3.375 GM in 0.9 % Sodium Chloride Mini Bag 100 ML IVPB SCH ×3 (07:22→21:59)
[2022-02-23] MEDS: amLODIPine 5 MG TABLET PO SCH (11:44)
[2022-02-24 04:37] LABS: Basophils # 0.1 K/mcL (0.0-0.2); Basophils % 0.4 %; Eosinophils # 0.2 K/mcL (0.0-0.6); Eosinophils % 1.5 %; Hematocrit 37.5 % (37.5-50.1); Hemoglobin 12.3 g/dL (12.9-16.9); Immature Granulocytes % 0.8 % (0-4); Lymphocytes # 1.7 K/mcL (0.6-4.6); Lymphocytes % 13.4 %; Mean Corpuscular HGB Conc 32.8 g/dL (31.6-35.5); Mean Corpuscular Hemoglobin 29.6 pg (28.0-33.3); Mean Corpuscular Volume 90.1 fL (83.0-100.0); Mean Platelet Volume 10.3 fL (9.4-12.4); Monocytes # 1.1 K/mcL (0.0-1.3); Monocytes % 8.8 %; Neutrophils # 9.2 K/mcL (1.6-8.9); Platelet Count 307 K/mcL (140-400); Red Blood Count 4.16 M/mcL (4.19-5.50); Red Cell Distribution Width 13.5 % (11.5-14.5); Segmented Neutrophils % 75.1 %; White Blood Count 12.3 K/mcL (4.3-11.1)
[2022-02-24 04:56] LABS: Alanine Aminotransferase 106 Units/L (7-52); Albumin 3.2 g/dL (3.5-5.7); Albumin/Globulin Ratio 1.1 (1.1-2.2); Alkaline Phosphatase 302 Units/L (34-104); Aspartate Amino Transferase 87 Units/L (13-39); BUN/Creatinine Ratio 10 (6-26); Bilirubin,Total 1.4 mg/dL (0.3-1.0); Blood Urea Nitrogen 14 mg/dL (8-23); Calcium 7.9 mg/dL (8.6-10.3); Carbon Dioxide 26 mEq/L (23-29); Chloride 105 mEq/L (98-107); Globulin 2.9 g/dL (2.4-3.5); Glucose 86 mg/dL (70-105); Osmolality,Calculated 286 (280-300); Potassium 3.4 mEq/L (3.5-5.1); Sodium 138 mEq/L (136-145); Total Protein 6.1 g/dL (6.4-8.9); eGFR For African Americans > 60 (> 60); eGFR For Non-African Americans 52 (> 60)
[2022-02-24] MEDS: Piperacillin/Tazobactam 3.375 GM in 0.9 % Sodium Chloride Mini Bag 100 ML IVPB SCH ×3 (05:58→21:11)
[2022-02-24] MEDS ORDERED: *HR* FentaNYL (PF) 100 MCG/2 ML VIAL ONE ×2 (08:30→09:40)
[2022-02-24] MEDS ORDERED: Lidocaine -MPF 4% 5 ML AMPUL ONE (08:30)
[2022-02-24] MEDS ORDERED: Lidocaine -MPF 2% 5 ML VIAL ONE (08:30)
[2022-02-24] MEDS ORDERED: *HR* Succinylcholine 200 MG/10 ML VIAL IVP ONE (08:30)
[2022-02-24] MEDS ORDERED: Ondansetron 4 MG/2 ML VIAL ONE (08:30)
[2022-02-24] MEDS ORDERED: *HR* Rocuronium Bromide 50 MG/5 ML VIAL ONE (08:30)
[2022-02-24] MEDS ORDERED: *HR* Propofol 200 MG/20 ML VIAL IVP ONE (08:31)
[2022-02-24] MEDS ORDERED: *HR* FentaNYL (PF) 100 MCG/2 ML VIAL IVP PRN (08:54)
[2022-02-24] MEDS ORDERED: Ondansetron 4 MG/2 ML VIAL IVP PRN (08:54)
[2022-02-24] MEDS: Ringers Solution, Lactated 1,000 ML IVC SCH (08:55)
[2022-02-24] MEDS ORDERED: CefOXitin 2,000 MG VIAL ONE (09:50)
[2022-02-24] MEDS: amLODIPine 5 MG TABLET PO SCH (12:54)
[2022-02-25 02:52] LABS: Basophils # 0.1 K/mcL (0.0-0.2); Basophils % 0.4 %; Eosinophils # 0.1 K/mcL (0.0-0.6); Eosinophils % 0.4 %; Hematocrit 37.7 % (37.5-50.1); Hemoglobin 12.1 g/dL (12.9-16.9); Immature Granulocytes % 1.4 % (0-4); Lymphocytes # 1.6 K/mcL (0.6-4.6); Lymphocytes % 13.4 %; Mean Corpuscular HGB Conc 32.1 g/dL (31.6-35.5); Mean Corpuscular Hemoglobin 28.9 pg (28.0-33.3); Mean Platelet Volume 10.2 fL (9.4-12.4); Monocytes # 0.9 K/mcL (0.0-1.3); Monocytes % 7.9 %; Platelet Count 318 K/mcL (140-400); Red Blood Count 4.19 M/mcL (4.19-5.50); Red Cell Distribution Width 13.6 % (11.5-14.5); Segmented Neutrophils % 76.5 %; White Blood Count 11.8 K/mcL (4.3-11.1)
[2022-02-25 03:11] LABS: Alanine Aminotransferase 134 Units/L (7-52); Albumin 3.1 g/dL (3.5-5.7); Albumin/Globulin Ratio 1.1 (1.1-2.2); Alkaline Phosphatase 383 Units/L (34-104); Aspartate Amino Transferase 113 Units/L (13-39); BUN/Creatinine Ratio 10 (6-26); Bilirubin,Total 1.1 mg/dL (0.3-1.0); Blood Urea Nitrogen 13 mg/dL (8-23); Calcium 7.7 mg/dL (8.6-10.3); Carbon Dioxide 26 mEq/L (23-29); Chloride 104 mEq/L (98-107); Globulin 2.9 g/dL (2.4-3.5); Glucose 92 mg/dL (70-105); Osmolality,Calculated 286 (280-300); Potassium 3.6 mEq/L (3.5-5.1); Sodium 138 mEq/L (136-145); eGFR For African Americans > 60 (> 60); eGFR For Non-African Americans 53 (> 60)
[2022-02-25] MEDS: Piperacillin/Tazobactam 3.375 GM in 0.9 % Sodium Chloride Mini Bag 100 ML IVPB SCH (05:49)
[2022-02-25 06:48] VITALS: BP 166/86; PULSE 72; TEMP 98.4; O2SAT 96
[2022-02-25] MEDS: Ringers Solution, Lactated 1,000 ML IVC SCH (07:53)
[2022-02-25] MEDS ORDERED: amLODIPine 5 MG TABLET PO SCH (09:00)
== END 2022-02-25 10:43 | disposition home or self-care (01) | DRG 409 ==
LOC: EMEROOARM 15:00 → 2ANU 15:00 → SUATTDRO 02-22 14:10
PROVIDERS: ADMIT Internal Medicine; ATTEND General Practice
PROC: ENDOEUS (2022-02-22 12:30)